=== PATIENT | female | born 1965 | race Caucasian/White ===

== ENCOUNTER 2022-05-15 08:59 | Outpatient (REF) | payer SELFPAY ==
--- NOTE | 2022-05-15 09:15 | CRLHL7_ITS ---
For Patients: As a result of the Cures Act, medical imaging exams and procedure reports are released immediately into your electronic medical record. You may view this report before your referring provider. If you have questions, please contact your health care provider. BILATERAL SCREENING MAMMOGRAM WITH COMPUTER-AIDED DETECTION AND TOMOSYNTHESIS TECHNIQUE: CC and MLO views were obtained. These mammographic images have been obtained using full-field digital technique. These mammographic images were interpreted with the benefit of computer-aided detection. Breast Tomosynthesis was used in this interpretation. COMPARISON FILM: 05/20/19, 03/14/18, 06/11/13. FINDINGS: There are scattered areas of fibroglandular density IMPRESSION: There is no radiographic evidence for malignancy. ASSESSMENT: BI-RADS Category 1: Negative RECOMMENDATION: Routine screening mammogram in 1 year. A lay language report of this examination will be provided to the patient. Sebastián Sheets M.D. Diagnostic Radiologist [email or web address] NANCY/[email or web address] Transcribed: 1:37 p.mNoel cruz/Dictated by: Sebastián Sheets MD @ 05/16/2022 9:36:00 AM (Electronically Signed)
--- NOTE | 2022-05-15 09:40 | CRLHL7_ITS ---
For Patients: As a result of the Century Cures Act, medical imaging exams and procedure reports are released immediately into your electronic medical record. You may view this report before your referring provider. If you have questions, please contact your health care provider. Indication: Knee pain Technique: Right knee 3 views Comparison: None Findings: Bones: Alignment is normal. No fractures or bone lesions. Joint spaces: Minimal patellofemoral spurring. No joint effusion. Soft tissues: Unremarkable. Impression: Minimal patellofemoral degenerative arthrosis. Dictated by Sebastián Sheets MD @ 05/15/2022 11:05:00 AM (Electronically Signed)
== END 2022-05-15 09:00 | disposition home or self-care (01) ==
LOC: RADCLIENT 08:59
PROVIDERS: PCP Family Medicine; Visit Provider Nurse Practitioner Family
DX: Z12.31 Encounter for screening mammogram for malignant neoplasm of breast (principal); M25.561 Pain in right knee; M17.11 Unilateral primary osteoarthritis, right knee
CPT/HCPCS: 73562; 77063; 77067

== ENCOUNTER 2024-02-14 11:27 | Outpatient (CLI) | payer OTHER, SELFPAY ==
--- NOTE | 2024-02-14 11:30 | CRLHL7_ITS ---
For Patients: As a result of the Century Cures Act, medical imaging exams and procedure reports are released immediately into your electronic medical record. You may view this report before your referring provider. If you have questions, please contact your health care provider. BILATERAL SCREENING MAMMOGRAM WITH COMPUTER-AIDED DETECTION AND TOMOSYNTHESIS TECHNIQUE: CC and MLO views were obtained. These mammographic images have been obtained using full-field digital technique. These mammographic images were interpreted with the benefit of computer-aided detection. Breast Tomosynthesis was used in this interpretation. COMPARISON FILM: 05/15/22, 05/20/19, 03/14/18. FINDINGS: The breasts are almost entirely fatty. IMPRESSION: There is no radiographic evidence for malignancy. ASSESSMENT: BI-RADS Category 1: Negative RECOMMENDATION: Routine screening mammogram in 1 year. A lay language report of this examination will be provided to the patient. Sebastián Sheets M.D. Diagnostic Radiologist [email or web address] SP/Dictated by: Sebastián Sheets MD @ 02/18/2024 12:55:00 PM (Electronically Signed)
--- OUTSIDE RECORDS SUMMARY | 2024-02-14 11:30 | XMS_ITS | Data Portability ---
Author Organization [facility] Address [address] [place] [address] [place] [address] Assessment Encounter Date Assessment Date Assessment LastModified by Organization Details LastModified Time 02/05/2023 02/05/2023 Patellofemoral pain and arthrosis [email or web address] Not available 02/05/2023 12:01:16 07/25/2023 07/25/2023 Working to apply for APC to help with chronic back and neck pain (recommended by Dr. Sanders). [email or web address] Not available 07/30/2023 11:23:00 12/05/2023 12/05/2023 At least 25 minutes spent with patient, reviewing chart and completing documentation. 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 Not available Not available Not available Lab BMP, serum or plasma 2023 024 [facility]- Lab, [address] [place], [address], 08/08/2023 11:35:42 glycohemo globin, total, blood 2023 024 [facility]- Lab, [address] [place], [address], 01/25/2024 10:17:27 lipid panel, serum 2023 024 [facility]- Lab, [address] [place], [address], 01/25/2024 10:20:08 fecal occult blood, immunoass ay, stool 2023 024 [facility]- Lab, [address] [place], [address], 01/30/2024 13:00:46 Referral physical therapist referral 2022 [id number] [email or web address] Not available 02/05/2023 16:38:30 physical therapist referral - Patello femoral pain protocol 2022 023 [email or web address] Not available 02/05/2023 16:38:43 Procedures None recorded. Surgeries None recorded. Imaging MAMMO, screening , bilateral 2023 024 [facility] Radiology Department, [address] [place], [address], 01/11/2024 04:01:31 Medication Orders Relafen 750 mg tablet [address], [address], 05/16/2023 11:10:57 gabapenti n 100 mg capsule 2023 024 [facility], [address] [place], [address], 03/19/2023 12:14:14 cyclobenz aprine 10 mg tablet [address] [place], [address], 07/25/2023 12:22:36 gabapenti n 100 mg capsule [email or web address], [address], 07/25/2023 12:24:36 Patient TargetsNo targets recorded. Patient Instructions Encounter Date Encounter Id Patient Instructions Last Modified By Organization Details Last Modified Time 05/16/2023 [id number] artritis de dawson: ejercicios - [neck arthritis: exercises] [email or web address] Not available 05/16/2023 11:30:23 dolor de dawson: instrucciones de cuidado - [neck pain: care instructions] [email or web address] Not available 05/16/2023 11:39:47 07/25/2023 [id number] colesterol alto: instrucciones de cuidado - [high cholesterol: care instructions] [email or web address] Not available 07/25/2023 12:26:20 At least 15 minutes spent with patient, reviewing chart and completing documentation. [email or web address] Not available 07/30/2023 11:22:42 12/05/2023 [id number] ronquidos: instrucciones de cuidado - [snoring: care instructions] Not available 12/05/2023 11:43:02 aprenda acerca d e las pruebas de detecci n del c ncer de seno - [learning about breast cancer screening] [email or web address] Not available 12/05/2023 11:43:02 Reason for Referral Physical Therapist Referral for Osteoarthritis of knee Referring Physician: Dr. Keegan Chavez MD, Orthopedic Surgery, Encounter Date: 02/05/2023 Physical Therapist Referral for Osteoarthritis of knee Patello femoral pain protocol Referring Physician: Dr. Keegan Chavez MD, Orthopedic Surgery, Encounter Date: 02/05/2023 Results Created Date Observation Date Name Description Value Unit Range Abnormal Flag Note LastModifiedBy Organization Detail LastModifiedTime 07/17/1907/17/2023 lipid panel , serum A1C 5.9 % <5.6 Not Available [facility]- Lab [address] [place], [address], 07/17/2023 11:15:50 01/25/20 24 01/25/2024 glyco hemog lobin , total , blood A1C 5.9 high Not Available [facility] [address] [place], [address], 01/25/2024 09:57:49 01/25/20 24 01/25/2024 lipid panel , serum total cholesterol 221 high Not Available [facility]- Lab [address] [place], [address], 01/30/2024 12:58:50 01/25/2001/25/2024 lipid panel , serum triglyceride s 124 Not Available [facility]- Lab [address] [place], [address], 01/30/2024 12:58:50 01/25/2001/25/2024 lipid panel , serum HDL 45 low Not Available [facility]- Lab [address] [place], [address], 01/30/2024 12:58:50 01/25/2001/25/2024 lipid panel , serum LDL 151 high Not Available [facility]- Lab [address] [place], [address], 01/30/2024 12:58:50 Result Notes None recorded. Problems Name Problem SNOMED Code Status Onset Date Resolution Date Notes Provider Name and Address Organization Details Recorded Time Osteoarthriti s of knee 484525708 Active 2022 Danilo Kingston MD [address] [place], [address], [facility] 3 11:04:31 Herpes labialis 5322564 Active 2022 Jyothi Sandoval NP [address] [place], [address], [facility] 3 10:19:38 Prediabetes 195315718 Active 2023 Jyothi Sandoval NP [address] [place], [address], [facility] 4 16:41:08 Past history of gestational diabetes mellitus 062550518 Active 2020 Jyothi Sandoval NP [address] [place], [address], [facility] 4 12:25:38 Problem Notes None recorded. Procedures Surgical History Date Name Laterality Status Provider Name and Address Organization Details Recorded Time 02/28/20 Date of Last Pap Smear completed Jyothi Sandoval NP [address] [place], [address], [facility] 02/27/2022 15:21:45 Caesarean Section completed Danilo Kingston MD [address] [place] [address], [phone], [facility] 08/30/2021 18:50:27 cholecystectomy completed Danilo Kingston MD [address] [place] [address], [phone], [facility] 08/30/2021 18:50:50 Carpal Tunnel Surgery completed Danilo Kingston MD [address] [place] [address], [phone], [facility] 08/30/2021 18:51:33 Imaging Results None recorded. Procedure Notes None recorded. Medical Equipment None Reported. Allergies No known drug allergies Medications Name Sig Start Date Stop Date Status Note LastModified by Organization Details LastModified Time cyclobenzap rine 10 mg tablet TAKE 1 TABLET 1/2 HOUR BEFORE BEDTIME FOR 10 DAYS THEN 1 TABLET EVERY EVENING NEEDED MUSCLE SPASMS 07/24 completed Not Available Not Available Not Available prednisone 10 mg tablet 05/31 completed Not Available Not Available Not Available nabumetone 750 mg tablet TAKE 1 TABLET BY MOUTH TWICE A DAY FOR 30 DAYS. 05/15 completed Not Available Not Available Not Available triamcinolo ne acetonide 0.5 % topical cream APPLY A THIN LAYER TO THE AFFECTED AREA(S) BY TOPICAL ROUTE 2 TIMES PER DAY 01/15 completed Not Available Not Available Not Available fluconazole 150 mg tablet TK 1 T PO 1 TIME FOR 1 DOSE 05/31 completed Not Available Not Available Not Available valacyclovi r 1 gram tablet TAKE ONE TABLET BY MOUTH EVERY 12 HOURS. FOR OUTBREAK TAKE TWO TABLETS TWICE A DAY ON DAY 1 AND ONE TABLET ON THE FOLLOWING DAY. 01/15 completed Not Available Not Available Not Available naproxen 250 mg tablet TAKE ONE TABLET BY MOUTH TWICE A DAY 05/12 completed Not Available Not Available Not Available fexofenadin e 180 mg tablet TAKE 1 TABLET BY MOUTH EVERY DAY 04/13 completed Not Available Not Available Not Available acyclovir 400 mg tablet 1 tablet PO TID x 5-10 days at first sign of herpes outbreak 2022 active Not Available Not Available Not Avai lable meloxicam 7.5 mg tablet TAKE ONE TABLET BY MOUTH TWICE A DAY 01/15 completed Not Available Not Available Not Available baclofen 10 mg tablet TAKE 1 TABLET BY MOUTH TWICE A DAY 04/13 completed Not Available Not Available Not Available indomethaci n 25 mg capsule TK 1 C PO TID WC 05/31 completed Not Available Not Available Not Available hydrocortis one 2.5 % topical cream APPLY A THIN LAYER TO THE AFFECTED AREA(S) TOPICALLY TWO TIMES PER DAY 08/30 completed Not Available Not Available Not Available gabapentin 100 mg capsule 1 capsule in morning, 2 at night. active Not Available Not Available No t Available triamcinolo ne acetonide 0.1 % lotion APPLY TOPICALLY TO THE AFFECTED AREA THREE TIMES DAILY FOR UP TO 2 WEEKS 05/31 completed Not Available Not Available Not Available naproxen 500 mg tablet TK 1 T PO BID FOR 14 DAYS 05/31 completed Not Available Not Available Not Available amoxicillin 875 mg-potassiu m clavulanate 125 mg tablet TK 1 T PO BID WC FOR 10 DAYS 05/19 completed Not Available Not Available Not Available cyclobenzap rine 5 mg tablet TK 1 T PO TID PRF MUSCLE SPASM 05/31 completed Not Available Not Available Not Available magnesium active Not Available Not Jenny ilable Not Available diclofenac 1 % topical gel APPLY 2 GRAMS TO THE AFFECTED AREA(S) FOUR TIMES A DAY 12/04 completed Not Available Not Available Not Available Vitals Date Recorded Body height Body mass index (BMI) Body weight Respiratory rate Body temperature Oxygen saturation Oxygen saturation in Arterial blood by Pulse oximetry Heart rate Systolic blood pressure Diastolic blood pressure Provider Name and Address Organization Details Last Updated DateTime 3 154.94 cm 27.1 kg/m2 03509.4 3 g 22 /min 97.4 [degF] 98 % 98 % 71 /min 120 mm[Hg] 72 mm[Hg] Rosita Castanon [facility] 3 11:48:17 Date Recorded Body height Provider Name an d Address Organization Details Last Updated DateTime 03/19/2023 154.94 cm Jacinda SalinasErin [facility] 03/19/2023 10:13:57 Date Recorded Body height Body mass index (BMI) Body weight Respiratory rate Oxygen saturation Oxygen saturation in Arterial blood by Pulse oximetry Body temperature Heart rate Systolic blood pressure Diastolic blood pressure Provider Name and Address Organization Details Last Updated DateTime 4 154.94 cm 26.9 kg/m2 23125.2 7 g 22 /min 99 % 99 % 97.1 [degF] 68 /min 115 mm[Hg] 71 mm[Hg] Rosita Castanon [facility] 4 11:02:53 Date Recorded Body height Body mass index (BMI) Body weight Respiratory rate Body temperature Oxygen saturation Oxygen saturation in Arterial blood by Pulse oximetry Heart rate Systolic blood pressure Diastolic blood pressure Provider Name and Address Organization Details Last Updated DateTime 4 154.94 cm 27.8 kg/m2 98539.0 8 g 22 /min 97.3 [degF] 99 % 99 % 74 /min 118 mm[Hg] 70 mm[Hg] Rosita Castanon [facility] 4 12:03:25 Date Recorded Body height Body mass index (BMI) Body weight Respiratory rate Oxygen saturation Oxygen saturation in Arterial blood by Pulse oximetry Body temperature Heart rate Systolic blood pressure Diastolic blood pressure Provider Name and Address Organization Details Last Updated DateTime 4 154.94 cm 27 kg/m2 81505.9 9 g 22 /min 99 % 99 % 96.6 [degF] 71 /min 103 mm[Hg] 68 mm[Hg] Rosita Castanon [facility] 4 11:17:21 Social History Question Answer Notes LastModified by Organizat ion Details LastModified Time Tobacco Smoking Status Never Smoker Danilo Kingston MD [address] [place] [address], [address], [facility] 12/29/2021 11:01:39 What Is Your Level Of Alcohol Consumption? 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 No [place] Information not available 12/29/2021 Do You Feel Safe At Home? Yes Information not available 08/30/2021 What Is Your Relationship Status? Information not available 12/29/2021 Do You Feel Stressed (tense, Restless, Nervous, Or Anxious, Or Unable To Sleep At Night)? [id number] Information not available 12/29/2021 Sex: Unknown Functional Status None recorded. Mental Status None recorded. Family History Relationship Description Onset Age of this Age Resolved Age Notes LastModified by Organization Details LastModified Time Father Diabetes mellitus maribel Not available 2021 18:49:18 Sister Diabetes mellitus maribel Not available 2021 18:49:31 Notes:5 other sibs without d iabetes Medical History No medical history recorded. Gynecological History Statement/Question Response Menses Monthly N If Post Menopausal, Age at Menopause 53 Date of Last Pap Smear 02/27/2022 Obstetrics History GPAL:G 3 P 3 0 0 0 Type Value Full Term 3 Total 3 Immunizations Vaccine Type Date Status Provider Name and Address Organization Details Recorded Time COVID-19, mRNA, LNP-S, PF, 30 mcg/0.3 mL dose 08/03/2020 completed Jyothi Sandoval, PEACE [address] [place], [address], [facility] 02/27/2022 10:19:22 COVID-19, mRNA, LNP-S, PF, 30 mcg/0.3 mL dose 03/24/2021 completed Jyothi Sandoval, PEACE [address] [place], [address], [facility] 02/27/2022 10:19:22 Influenza, split virus, trivalent, preservative 03/29/2012 completed Jyothi Sandoval, PEACE [address] [place], [address], [facility] 02/27/2022 10:19:22 COVID-19, mRNA, LNP-S, PF, 30 mcg/0.3 mL dose 08/24/2020 completed Jyothi Sandoval, PEACE [address] [facility] [place], [address], [facility] 02/27/2022 10:19:22 Tdap 09/06/2018 completed Jyothi Sandoval, PEACE [address] [facility] [place], [address], [facility] 02/27/2022 10:19:22 Td (adult), 2 Lf tetanus toxoid, preservative free, adsorbed 05/01/2003 completed Jyothi Sandoval, PEACE [address] [facility] [place], [address], [facility] 02/27/2022 10:19:22 Influenza, split virus, quadrivalent, PF 01/15/2014 completed Jyothi Sandoval NP [address] [facility] [place], [address], [facility] 02/27/2022 10:19:22 COVID-19, mRNA, LNP-S, bivalent, PF, 50 mcg/0.5 mL or 25mcg/0.25 mL dose 02/09/2022 completed Jyothi Sandoval, PEACE [address] [place], [address], [facility] 01/15/2023 10:19:12 Past Encounters Encounter ID Performer Location Encounter Start Date Encounter Closed Date Diagnosis/Indication Diagnosis SNOMED-CT Code Diagnosis ICD10 Code [id number] MD MIGUELITO MartinezANA [facility] [address] [place] [id number] 05/18/2020 18:47:51 05/19/2020 11:58:41 Prediabetes 941794949 R73.03 [id number] MD [place] OFFICE [address] [place] [id number] 04/21/2021 11:14:14 04/21/2021 11:51:44 Backache 401584177 M54.9 [id number] MD MILES Martinez OFFICE [address] [place] [address] 05/31/2021 17:29:22 05/31/2021 18:07:59 Backache 513088550 M54.9 [id number] Danilo Kingston MD [facility] [address] [facility] OLINDA STEIN [address] 08/30/2021 18:20:13 08/30/2021 18:49:49 Eruption 393058345 R21 Pain in elbow 20502410 M 25.521 Herpes labialis 5005330 B00.1 [id number] Danilo Kingston MD [facility] [address] [place] [address] [place] [address] 12/29/2021 10:43:42 12/29/2021 11:32:47 Throat irritation 994542416 R07.0 Pain in elbow 02182796 M 25.521 Eruption 378215797 R21 [id number] Keegan Beck MD [facility] [address] [place] [address] [place] [address] 02/20/2022 13:57:14 02/20/2022 16:09:21 Sciatica 49814068 M54.32 [id number] Jyothi Sandoval, [facility] [address] [place] [address] [place] [address] 02/27/2022 10:06:53 02/27/2022 10:49:21 Screening for malignant neoplasm of breast 934982751 Z12.39 Screening for malignant neoplasm of cervix 430024484 Z12.4 Postmenopausal state 764 91606 Z78.0 [id number] Danilo Kingston MD [facility] [address] [place] [address] [place] [address] 04/13/2022 10:32:52 04/13/2022 11:05:47 Multiple joint pain 96960021 M25.50 Backache 319326374 M54.9 [id number] REDDY ADAMS, [facility] OFF[facility] [address] [place] [address] [place] [address] 04/20/2022 11:51:28 04/20/2022 14:55:20 Low back pain 233416583 M54.50 [id number] Danilo Kingston MD [facility] [address] [place] [address] [place] [address] 05/11/2022 11:03:25 05/11/2022 11:42:59 Pain of right knee joint 3817195645 92917 M25.561 [id number] Danilo Kingston MD [facility] [address] [place] [address] [facility] [place] [address] 06/15/2022 09:58:32 06/15/2022 10:24:38 Pain of right knee joint 0943105486 33139 M25.561 Pain of le ft knee joint 3412730068 45058 M25.562 [id number] Danilo Kingston MD [facility] [address] [place] [id number] 07/20/2022 10:43:11 07/20/2022 11:11:04 Osteoarthritis of knee 851333395 M17.9 Past pregn jcarlos history of gestational diabetes mellitus 985563590 Z86.32 [id number] Jyothi Sandoval NP [facility] [address] [place] [address] 01/15/2023 09:59:15 01/15/2023 10:39:37 Prediabetes 357813365 R73.03 Herpes labialis 2925072 B00.1 Paresthesia 47074943 R20 [id number] Keegan Beck MD [facility] [address] [place] [address] [place] [address] 02/05/2023 11:34:39 02/05/2023 12:17:22 Osteoarthritis of knee 786452354 M17.9 [id number] [facility]i [facility]oval [facility] [address] [place] [address] 03/19/2023 10:10:58 03/20/2023 12:19:34 Paresthesia of lower extremity 442993291 R20.2 Osteoarthr itis of knee 698270204 M17.9 [id number] Jyothi Sandoval NP [facility] [address] [place] [id number] 05/16/2023 10:57:28 05/16/2023 11:33:10 Paresthesia of lower extremity 124022902 R20.2 Neck pain 70353511 M54.2 [id number] Jyothi Sandoval NP [facility] [address] [facility] [place] [address] 07/25/2023 11:54:44 07/25/2023 12:43:20 Dyslipidemia 843185172 E78.5 Prediabetes 709344558 R7 3.03 Screening for malignant neoplasm of colon 318399140 Z12.11 [id number] Jyothi Sandoval NP [facility] [address] [facility] [place] [address] 12/05/2023 11:08:33 12/05/2023 12:03:26 Screening for malignant neoplasm of breast 602870937 Z12.39 Frontal headache 4442185 05 R51.9 Snoring 54236016 R06.83 Health Concerns Section Related Observation LastModified by Organization Detai ls LastModified Time None Recorded Concern Status LastModified by Organization Details LastModified Time None Recorded Advance Directives Directive None Recorded Payers Encounter Date Sequence Insurance Name Policy Number Policy Kimball Covered Member ID Kimball Member ID Guarantor Name 02/05/2023 SLIDING FEE SCHEDULE - DISCOUNT Cher Cuevas 03/19/2023 SLIDING FEE SCHEDULE - DISCOUNT Cher Cuevas 05/16/2023 SLIDING FEE SCHEDULE - DISCOUNT Cher Cuevas 07/25/2023 SLIDING FEE SCHEDULE - DISCOUNT Cher Cuevas 12/05/2023 [place] SCREEN[employer] - [place] [employer] Cher Ambriz [id number] Cher Cuevas Notes Date Note Type Note Provider Name and Address Organization Details Recorded Time 02/05/2023 text/html Patient returns with patellofemoral pain Right greater than left. Also continues with sciatica pain. Radiographs and CT scan reviewed. Denies mechanical symptoms. Pain mostly sit to stand and stair pain. Dr. Keegan jimenez MD [address] [place], [address], [facility] 02/05/2023 12:04:40 03/19/2023 text/html Sra. Cuevas is a [age] year old Venezuelan-speaking woman who presents today to discuss her progress on Gabapentin 100mg daily which we have started r/t lower leg neuropathic-type pain. Patient reports that the medication is helping a little. The medication works quite well when she takes it but she finds the effect only lasts for 6 hours. No side effects. She self increased her dose and has been taking 100mg BID. Since our last visit, Cher has seen our orthopaedic surgeon Dr. Scott who recommended a PT program. That is on hold r/t cost. Also started on Relafen BID. 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 Patient notes a 2-3 month history of pain that extends from base of right neck to shoulder. No preceding trauma. Pain is worse in afternoons. Can sometimes interfere with sleep. Carrying heavy objects aggravates. No paresthesias but does occasionally feel her right hand feels swollen, occasionally weak. No dropped objects. Neck is occasionally stiff but this improves with time. Has increased morning dose of Gabapentin to 200mg (now taking 200mg BDI) and that has somewhat helped with neck pain. Had a massage at the [facility] that was too intense and did not help. Sleeps on left side with very flat pillow. 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 Labs: A1C: 5.9% (decrease from 6% last year), LDL 157 (140 last year). Drinking yolis tea, no soda, cutting back on bread. Walking more. Neck pain: cyclobenzaprine helped minimally. Pain is tolerable. ASCVD 3.5% (7% if T2DM0). Considering applying for APC. 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 Works day and nights. . 3 x C/S. No complications. Last menses was 4 years ago. No more hot flashes. No post-coital spotting or other spotting. No abnormal discharge. Last pap 2021 WNL. No personal or family history of breast or cervical cancer. No breast concerns. PITTS pain: every other morning or so will wake up with frontal headache pain. Can last 2-3 hours. Has been present for at least 2 months. Snores loudly every night. Wakes with dry mouth and nose. Sleeps with closed windows. Urine is dark yellow in mornings. No N/V in morning, dizziness or vision changes. No OTC treatments tried. Jyothi Sandoval NP [address] [place], [address], [facility] 12/05/2023 16:42:20 OBGyn Episode No OBEpisode recorded.
--- OUTSIDE RECORDS SUMMARY | 2024-02-14 11:30 | XMS_ITS | Clinical Summary ---
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 15 tablet 01/30/2020 Active valACYclovir (VALTREX) 1 gram tabletIndications:Re current cold sores Take 2 tablets (2 grams) now and then repeat again in 12 hours for outbreak. Given #12 tablets for 3 courses of medication. 12 tablet 02/26/2020 Active triamcinolone 0.1% TOPICAL (KENALOG) 0.1 % lotionIndications:Ra sh Apply topically to affected area(s) 3 times daily. For up to 2 weeks 1 Bottle 1 05/27/2020 Active diclofenac topical (VOLTAREN) 1 % gelIndications:Metat arsalgia of both feet Apply 2 g topically to affected area(s) 4 times daily. 1 Tube 2 07/20/2020 Active naproxen (NAPROSYN) 500 mg tabletIndications:Sc iatica without back pain, unspecified laterality,Metatarsa lgia of both feet TAKE 1 TABLET(500 MG) BY MOUTH TWICE DAILY 60 Tablet 2 01/04/2021 Active Active Problems Problem Noted Date Diagnosed Date Alopecia areata 07/02/2018 Chronic tension-type headache, not intractable 0 09/10/2014 Left carpal tunnel syndrome 09/10/2014 Myopia 05/09/2013 Resolved Problems Problem Noted Date Diagnosed Date Resolved Date Headache 10/01/2013 01/15/2014 Adjustment disorder with depressed mood 10/14/2010 01/15/2014 Elderly multigravida with an tepartum condition or complication 10/01/2007 10/21/2009 Supervision of other normal 10/01/2007 10/21/2009 Lateral epicondylitis of elbow 03/27/2006 02/16/2011 RENATO. CARPAL TUNNEL SYNDROME 11/01/2005 02/16/2011 Immunizations Name Administration Dates Next Due COVID-19 vaccine ([employer] 30mcg/0.3mL) P F, MDV 08/24/2020,08/03/2020 Influenza, IIV3 (Age >=3 years) 03/29/2012 Influenza, IIV4 01/15/2014 Td (Age >=7 Years) 05/01/2003 Tdap 09/06/2018 Family History Medical History Relation Name Comments Diabetes Maternal Uncle Cancer-breast No Family History Cancer-ovarian No Family History Relation Name Status Comments Father Alive Maternal Uncle Mother Alive Social History Tobacco Use Types Packs/Day Years Used Date Smoking Tobacco: Never Smokeless Tobacco: Never Tobacco Cessation:Counseling Given: Yes Alcohol Use Standard Drinks/Week Comments No 0 (1 standard drink = 0.6 oz pur e alcohol) PHQ-2 Answer Date Recorded PHQ-2 Score 2 09/06/2018 Social Connections Answer Date Recorded Frequency of Communication with Friends and Fami ly Not on file 03/08/2021 Financial Resource Strain Answer Date R ecorded Difficulty of Paying Living Expenses Not on file 03/08/2021 Difficulty of Paying Living Expenses Not on file 03/08/2021 Sex and Gender Information Value Date Recorded Sex Assigned at Not on file Gender Identity Not on file Sexual Orientation Not on file Obstetrics History Para Term AB IAB SAB Ectopic Multiple Livin g Live Births 2 2 Date Outcome GA Total Labor Labor/2nd/3rd Weight Sex Type Anes PTL Arianna A1 A5 Name Clin Last Filed Vital Signs Vital Sign Reading Time Taken Comments Blood Pressure 111/73 08/10/2020 3:35 PM CDT tow er Pulse 72 08/10/2020 3:35 PM CDT Temperature 36.8 C (98.3 F) 02/26/2020 3:09 PM QUALITY NURSE Respiratory Rate 16 04/16/2008 9:44 AM QUALITY NURSE Oxygen Saturation 95% 08/10/2020 3:35 PM CDT Inhaled Oxygen Concentration - - Weight 68 kg (150 lb) 08/10/2020 3:35 PM CDT Height 155 cm (5' 1.02) 07/20/2020 8:51 AM CDT Body Mass Index 28.32 07/20/2020 8:51 AM CDT Plan of Treatment Health Maintenance Due Date Last Done Comments Zoster (shingles) series for age 50+ (1 of 2) 2017 Depression screening for age 12+ 09/07/2019 09/06/2018 Fecal testing non-DNA (FIT,FOBT,iFOBT) for age 45-75 01/07/2021 01/08/2020, 03/14/2018 BMI (ht and wt on same day) for age 18+ 07/20/2021 07/20/2020, 02/26/2020, 01/30/2020, Additional history exists Lipids for age 45-75 03/07/2023 03/07/2018, 01/15/2014, 05/01/2013, Additional history exists Mammogram for age 45-75 05/16/2023 05/16/19 23, 05/20/2019, 03/14/2018, Additional history exists COVID-19 vaccine series ( season) 2023 03/24/2021, 08/24/2020, 08/03/2020 Influenza for age 50-64 11/11/2023 01/15/2014, 03/29 Pap test for age 21-65 02/27/2025 2, 02/27/2022, 03/07/2018, Additional history exists Tetanus booster 09/06/2028 09/06/2018, 05/01/2003 HIV for age 15-65 Completed 03/07/2018, , 05/11/2011, Additional history exists Hepatitis C screening for age 18-79 Completed 03/07/2018, 05/11/2011, 09/15/2010 Tdap Completed 09/06/2018 Pneumococcal series for age 6-64 Aged Out No longer eligible based on patient's age to complete this topic Procedures Procedure Name Priority Date/Time Associated Diagnosis Comments SCAN-MAMMOGRAPHY REPORT 05/15/2022 12:00 AM QUALITY NURSE HPV HIGH RISK Routine 02/27/2022 9:00 AM QUALITY NURSE OCCULT BLOOD IFOBT STOOL Routine 01/08/2020 8:03 AM CDT Screening for colorectal cancer ANTI HIV 1/2 Routine 03/07/2018 11:50 AM QUALITY NURSE Screen for STD (sexually transmitted disease) HCV RNA QUANT Routine 03/07/2018 11:50 AM QUALITY NURSE Screen for STD (sexually transmitted disease) LIPID PANEL Routine 03/07/2018 11:50 AM QUALITY NURSE Lipid screening from Last 3 Months or Most Recently Relevant to Health Maintenance Results * SCAN-MAMMOGRAPHY REPORT (05/15/2022 12:00 AM QUALITY NURSE) Anatomical Region Laterality Modality Other Scanner OTHER * HPV HIGH RISK (02/27/2022 9:00 AM QUALITY NURSE) TYPE 16 Negative Negative 03/02/2022 3:03 PM QUALITY NURSE [facility] TYPE 18 Negative Negative 03/02/2022 3:03 PM QUALITY NURSE [facility] OTHER HIGH RISK TYPES Negative Negative 03/02/2022 3:03 PM QUALITY NURSE [facility] Other (Cervical) 02/27/2022 9:00 AM QUALITY NURSE 02/28/2022 5:43 PM QUALITY NURSE Narrative [facility] - 03/02/2022 3:03 PM QUALITY NURSE HPV types 16, 18, 31, 33, 35, 39, 45, 51, 52, 56, 58, 59, 66 and 68 DNA were undetectable or below the pre-set threshold. Methodology: Quita Mikhail 4800 HPV Test Jyothi Sandoval RN, [facility] MICROBIOLOGY [facility] [address] [place] [address], [place] * OCCULT BLOOD IFOBT STOOL (01/08/2020 8:03 AM CDT) STOOL BLOOD ,IFOBT Negative Negative 01/16/2020 9:29 AM QUALITY NURSE [facility] Stool STOOL SPECIMEN / Unknown Non-Blood / Unknown 01/08/2020 8:03 AM CDT 01/14/2020 8:03 AM QUALITY NURSE Felicia Mancia MD LABORATORY Performing Organization Address City/[facility]/ZIP Co de Phone Number [facility] [address] [place] [address], * HCV RNA QUANT (03/07/2018 11:50 AM QUALITY NURSE) Pathologist [facility] HCV RNA RT-PCR HCV RNA not detected HCV RNA not detected IU/mL 03/13/2018 1:55 PM QUALITY NURSE [facility] Blood BLOOD SPECIMEN / Unknown Venipuncture / Unknown 03/07/2018 11:50 AM QUALITY NURSE 03/07/2018 11:51 AM QUALITY NURSE Narrative [facility] - 03/13/2018 1:55 PM QUALITY NURSE Method: Mikhail HCV Test Felicia Mancia MD SEND OUTS Performing Organization Address [facility] Co de Phone Number [facility] [address] [place] [address], [place] * ANTI HIV 1/2 (03/07/2018 11:50 AM QUALITY NURSE) Pathologist [facility] HIV-1/HIV-2 ANTIBODY Non-Reacti ve Non-Reacti ve 03/07/2018 6:40 PM QUALITY NURSE [facility] Comment:HIV-1 p24 and HIV-1/ HIV-2 Ab not detected. Blood BLOOD SPECIMEN / Unknown Venipuncture / Unknown 03/07/2018 11:50 AM QUALITY NURSE 03/07/2018 11:51 AM QUALITY NURSE Feliica Mancia MD SEND OUTS [facility] [address] [place] [address], [place] * (ABNORMAL) LIPID PANEL (03/07/2018 11:50 AM QUALITY NURSE) CHOLESTEROL,TOTAL 226(H) 100 - 199 mg/dL 03/07/2018 6:18 PM QUALITY NURSE [facility] TRIGLYCERIDES 186(H) <150 mg/dL 03/07/2018 6:18 PM QUALITY NURSE [facility] HDL CHOLESTEROL 48 >40 mg/dL 8 6:18 PM QUALITY NURSE [facility] NON-HDL CHOLESTEROL 178(H) <145 mg/dl 03/07/2018 6:18 PM QUALITY NURSE [facility] CHOL/HDL RATIO 4.71(H) <4.50 03/07/2018 6:18 PM QUALITY NURSE [facility] LDL CHOLESTEROL 141(H) <=130 mg/dL 03/07/2018 6:18 PM [facility] PROVIDER ORDERED STATUS RANDOM 03/07/2018 6:18 PM [facility] Blood BLOOD SPECIMEN / Unknown Venipuncture / Unknown 03/07/2018 11:50 AM QUALITY NURSE 03/07/2018 11:51 AM QUALITY NURSE Felicia Mancia MD CHEMISTRY [facility] 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
--- OUTSIDE RECORDS SUMMARY | 2024-02-14 11:31 | XMS_ITS | Continuity of Care Document ---
Author Organization [facility] [place] [facility] Address [address] [place] [address] [place] [address] Assessment Encounter Date Assessment Date Assessment LastModified by Organization Details LastModified Time 12/05/2023 12/05/2023 At least 25 minutes spent with patient, reviewing chart and completing documentation . Not available 12/05/2023 12:03:36 Plan of Treatment Reminders Order Date Submit Date Provider Last Modified By Organization Details Last Modified Time Details Appointments ESTABLISH ED PATIENT 30 2024 11:00A M Jyothi Sandoval [facility] Not available Not available Not available Lab None recorded. Referral None recorded. Procedures None recorded. Surgeries None recorded. Imaging MAMMO, screening , bilateral 2023 09 024 [facility] Radiology Department, [address] [place], [address], 01/11/2024 04:01:31 Medication Orders None recorded. Patient TargetsNo targets recorded. Patient Instructions Encounter Date Encounter Id Patient Instructions Last Modified By Organization Details Last Modified Time 12/05/2023 [id number] ronquidos: instrucciones de cuidado - [snoring: care instructions] [email or web address] Not available 12/05/2023 11:43:02 aprenda acerca d e las pruebas de detecci n del c ncer de seno - [learning about breast cancer screening] Not available 12/05/2023 11:43:02 Reason for Referral None Reported. Problems Name Problem SNOMED Code Status Onset Date Resolution Date Notes Provider Name and Address Organization Details Recorded Time Osteoarthriti s of knee 613310117 Active 2022 Danilo Kingston MD [address] [facility] [place], [address] , [facility] 11:04:31 Herpes labialis 2822402 Active 2022 [place] [address] [place] [address], [phone], [facility] 3 10:19:38 Prediabetes 897644971 Active 2023 Jyothi Sandoval NP [address] [place] [address], [phone], [facility] 4 16:41:08 Past history of gestational diabetes mellitus 816770559 Active 2020 Jyothi Sandoval NP [address] [place] [address], [phone], [facility] 4 12:25:38 Problem Notes None recorded. Procedures Surgical History Date Name Laterality Status Provider Name and Address Organization Details Recorded Time 02/28/20 22 Date of Last Pap Smear completed Jyothi Sandoval NP [address] [place] [address], [phone], [facility] 02/27/2022 15:21:45 Caesarean Section completed Danilo Kingston MD [address] [place] [address], [phone], [facility] 08/30/2021 18:50:27 cholecystectomy completed Danilo Kingston MD [address] [place] [address], [phone], [facility] 08/30/2021 18:50:50 Carpal Tunnel Surgery completed Danilo Kingston MD [address] [place] [address], [phone], [facility] 08/30/2021 18:51:33 Imaging Results None recorded. Procedure [...] Updated DateTime 4 154.94 cm 27 kg/m2 11916.9 9 g 22 /min 99 % 99 % 96.6 [degF] 71 /min 103 mm[Hg] 68 mm[Hg] Rosita Lg [facility] [employer] 4 11:17:21 Social History Question Answer Notes LastModified by Organizat ion Details LastModified Time Tobacco Smoking Status Never Smoker Danilo Kingston MD [address] [place] [address], [phone] [employer] 12/29/2021 11:01:39 What Is Your Level Of Alcohol Consumption? 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 No [facility] Information not available 12/29/2021 Do You Feel Safe At Home? Yes Information not available 08/30/2021 What Is Your Relationship Status? Information not available 12/29/2021 Do You Feel Stressed (tense, Restless, Nervous, Or Anxious, Or Unable To Sleep At Night)? [id number] Information not available 12/29/2021 Sex: Unknown Functional [...] dose 08/03/2020 completed Jyothi Sandoval, PEACE [address] [place], [address], [facility] 02/27/2022 10:19:22 COVID-19, mRNA, LNP-S, PF, 30 mcg/0.3 mL dose 03/24/2021 completed Jyothi Sandoval, PEACE [address] [place], [address], [facility] 02/27/2022 10:19:22 Influenza, split virus, trivalent, preservative 03/29/2012 completed Jyothi Sandoval, PEACE [address] [place], [address], [facility] 02/27/2022 10:19:22 COVID-19, mRNA, LNP-S, PF, 30 mcg/0.3 mL dose 08/24/2020 completed Jyothi Sandoval, PEACE [address] [place], [address], [facility] 02/27/2022 10:19:22 Tdap 09/06/2018 completed Jyothi Sandoval, PEACE [address] [place], [address], [facility] 02/27/2022 10:19:22 Td (adult), 2 Lf tetanus toxoid, preservative free, adsorbed 05/01/2003 completed Jyothi Sandoval, PEACE [address] [place], [address], [facility] 02/27/2022 10:19:22 Influenza, split virus, quadrivalent, PF 01/15/2014 completed Jyothi Sandoval NP [address] [place], [address], [facility] 02/27/2022 10:19:22 COVID-19, mRNA, LNP-S, bivalent, PF, 50 mcg/0.5 mL or 25mcg/0.25 mL dose 02/09/2022 completed Jyothi Sandoval NP [address] [facility] [place], [address], [facility] 01/15/2023 10:19:12 Past Encounters Encounter ID Performer Location Encounter Start Date Encounter Closed Date Diagnosis/Indication Diagnosis SNOMED-CT Code Diagnosis ICD10 Code [id number] Jyothi Sandoval NP [facility] [address] [facility] [place] [address] 12/05/2023 11:08:33 12/05/2023 12:03:26 Screening for malignant neoplasm of breast 551019454 Z12.39 Frontal headache 8591320 05 R51.9 Snoring 11726607 R06.83 Health Concerns Section Related Observation LastModified by Organization Detai ls LastModified Time None Recorded Concern Status LastModified by Organization Details LastModified Time None Recorded Payers Encounter Date Sequence Insurance Name Policy Number Policy Kimball Covered Member ID Kimball Member ID Guarantor Name 12/05/2023 [employer] [place] [employer] Cher Cuevas Pb [id number] Cher Mason Notes Date Note Type Note Provider Name and Address Organization Details Recorded Time 12/05/2023 text/html is a 58 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 No OTC treatments tried. Jyothi Sandoval, CELL CHANGER [address] [place], [address], [facility] 12/05/2023 16:42:20 OBGyn Episode No OBEpisode recorded.
== END 2024-02-14 11:28 | disposition home or self-care (01) ==
LOC: MAMMO 11:29
PROVIDERS: Visit Provider Nurse Practitioner Family
DX: Z12.31 Encounter for screening mammogram for malignant neoplasm of breast (principal)
CPT/HCPCS: 77063; 77067

== ENCOUNTER 2024-09-03 15:15 | Outpatient (RCR) | payer MEDICAID, SELFPAY | END 2024-12-08 09:42 | disposition home or self-care (01) | PROVIDERS: Visit Provider Family Medicine | DX: M25.511 Pain in right shoulder (principal); M25.512 Pain in left shoulder; G89.29 Other chronic pain; M54.2 Cervicalgia; M79.601 Pain in right arm; Z51.89 Encounter for other specified aftercare | CPT/HCPCS: 97012; 97110; 97140; 97162; T1013 ==